=== PATIENT | male | born 1965 | race Caucasian/White ===

== ENCOUNTER 2017-04-28 06:55 | Day surgery (SDC) | payer OTHER ==
[~2017-04-28] VITALS: Ht 165.1 cm; Wt 115.2 kg
[~2017-04-28 06:55] MED LIST: ALBUTEROL SULF8.5 GM INH; ASPIRIN EC325 MG PO; ASPIRIN EC81 MG PO; ATORVASTATIN CA80 MG PO; HYDROMORPHONE HC4 MG PO; IBUPROFEN600 MG PO; LIPOFEN50 MG PO; LISINOPRIL10 MG PO; LISINOPRIL20 MG PO; LOFIBRA160 MG PO; MAPAP325 MG PO; METOPROLOL SUCC25 MG PO; OMEPRAZOLE MAGN20 MG PO; PULMICORT FLE180 MCG INH; VENTOLIN HFA18 GM INH
--- NOTE | 2017-04-28 10:31 | NUR ---
PT ALERT, ORIENTED AND SUPPORTED BY HIS . BOTH HAVE GREAT ATTIT UDES, A LITTLE FRUSTRATED ABOUT HAVING TO COME BACK. THEY HAVE HAD NUMEROUS TRIPS TO [facility] RECENTLY. BOTH SEEMED PREPARED AND TRYING TO TAKE IT ALL IN STRIDE. PT REQUESTED PRAYER. WILL CONTINUE TO FOLLOW
--- NOTE | 2017-04-28 10:42 | NUR ---
[facility]17 [facility].
--- NOTE | 2017-04-29 22:37 | OR ---
[facility] [address], [place] [address] Signed DATE OF PROCEDURE: 04/28/17 PREOPERATIVE DIAGNOSIS: Nonhealing skin lesion of right upper nose. POSTOPERATIVE DIAGNOSIS: Nonhealing skin lesion of right upper nose. PROCEDURE Full-thickness excision of right nasal skin lesion, 1.1 cm excision size. Primary closure, 5-0 nylon suture. SURGEON: Juvenal Kerr MD. ANESTHESIA Local with monitored anesthesia care (Pascual Holloway CRNA). 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 Abdi Fernandes. He has recently undergone cholecystectomy by me. There was noted to have a nonhealing ulcerated lesion of his right nose. The lesion has been present for at least 6 months. It does not have a papillary configuration but rather a pit like configuration. Excision is indicated as it has a high probability of malignancy. Consideration has been made for rotational flap rather closure of the defect, but given its small size, primary closure is most appropriate. He understands the risks of bleeding, infection, recurrent lesion, need for additional treatment and other unforeseen complications including cosmetic deficiencies and he wishes to proceed. FINDINGS The lesion was pit like and ulcerated. Excision was undertaken along the line of skin tension, 1.1 cm excision size was noted. Closure was with primary reapproximation of the skin edges without problem. PROCEDURE IN DETAIL The patient was brought to the operating room, placed in supine position. Given intravenous sedation with Propofol infusional anesthetic. Nasal cannula oxygen was placed in his mouth. The nose was prepared with a Betadine solution and draped sterilely. A blue towel with a hole cut in the middle was used to isolate the nasal area. Photographs were taken. 0.25% Marcaine without epinephrine was injected locally into the area for a field block anesthetic. The skin tension was well demonstrated previously and appeared to be all along the axis of the bridge of the nose. Elliptical incision was undertaken full-thickness with clinically negative margins. A 1.2 cm excision size was noted. Electrocautery was used for hemostasis. Slight undermining laterally was undertaken and medially to a small degree as well. Primary reapproximation Electronically Signed By: JUVENAL KERR MD 04/29/17 2237 PATIENT NAME: FRANCE LESLIE ARIS OPERATIVE REPORT DATE OF : 63 PHYSICIAN: JUVENAL KERR MD REPORT #: [id number] REPORT IS CONFIDENTIAL AND NOT TO BE RELEASED WITHOUT AUTHORIZATION [address] [address] Signed of the skin was undertaken with interrupted 5-0 nylon suture. Pressure was applied to the area to assure hemostasis. A small round Band-Aid was applied. The patient was allowed to emerge from sedation and taken to recovery room in good condition having suffered no complications. Photographs were taken throughout the procedure. Blood loss was minimal. MD MILTON Quiroz/Robin /[id number] cc: Abdi Fernandes DO Electronically Signed By: JUVENAL KERR MD 04/29/17 2237 PATIENT NAME: FRANCE LESLIE OPERATIVE REPORT DATE OF : 63 PHYSICIAN: JUVENAL KERR MD REPORT #: [id number] REPORT IS CONFIDENTIAL AND NOT TO BE RELEASED WITHOUT AUTHORIZATION
== END 2017-04-28 11:22 | disposition home or self-care (01) ==
LOC: DS 06:55
PROVIDERS: Surgery
PROC: 0HB1XZZ Excision of Face Skin, External Approach (ICD-10-PCS; principal; 2017-04-28 08:15)
DX: C44.311 Basal cell carcinoma of skin of nose (principal); J45.909 Unspecified asthma, uncomplicated; I25.10 Atherosclerotic heart disease of native coronary artery without angina pectoris; E78.5 Hyperlipidemia, unspecified; I10 Essential (primary) hypertension; G47.30 Sleep apnea, unspecified; Z88.5 Allergy status to narcotic agent; Z96.641 Presence of right artificial hip joint; Z90.49 Acquired absence of other specified parts of digestive tract; Z90.89 Acquired absence of other organs; Z98.890 Other specified postprocedural states; Z79.899 Other long term (current) drug therapy
CPT/HCPCS: 00300; J0690; J2704; J7120